=== PATIENT | female | born 1985 | race Caucasian/White ===

== ENCOUNTER 2020-07-09 20:13 | Emergency (ER) | payer OTHER, SELFPAY ==
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
[2020-07-09 20:12] VITALS: BP 123/74; PULSE 91; O2SAT 98
[2020-07-09 20:16] VITALS: BP 135/96; PULSE 81; RESP 16; O2SAT 97; BMI 45.4
[2020-07-09] MEDS: Acetaminophen 325 MG TABLET 650 MG PO (20:30)
--- NOTE | 2020-07-09 20:30 | PC.NURSE ---
Pt medicated with Tylenol and provided with ice while awaiting primary MD peres.
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
--- NOTE | 2020-07-09 22:18 | PC.NURSE ---
Off to CT on hospital bed.
[2020-07-09] MEDS: diazePAM 2 MG TABLET PO (22:19)
--- NOTE | 2020-07-09 22:20 | PC.NURSE ---
Returns from CT, medicated with Diazepam per MAY. Awaiting CT results.
--- NOTE | 2020-07-09 23:04 | PC.NURSE ---
MD at bedside explaining results and plan to DC home.
[2020-07-09 23:11] VITALS: BP 152/74; PULSE 80; RESP 16; O2SAT 98
== END 2020-07-09 23:12 | disposition home or self-care (01) ==
PROVIDERS: Emergency Provider Emergency Medicine
DX: S19.9XXA Unspecified injury of neck, initial encounter (principal); M54.2 Cervicalgia; V89.2XXA Person injured in unspecified motor-vehicle accident, traffic, initial encounter; Y93.9 Activity, unspecified; Y92.410 Unspecified street and highway as the place of occurrence of the external cause; Y99.9 Unspecified external cause status; Z79.899 Other long term (current) drug therapy; F17.200 Nicotine dependence, unspecified, uncomplicated; Z71.6 Tobacco abuse counseling
CPT/HCPCS: 70450; 72125; 99284

== ENCOUNTER 2022-08-10 15:39 | Emergency (ER) | payer OTHER, SELFPAY ==
--- NOTE | ~2022-08-10 | US_ITS ---
EXAMINATION: US PELVIS CLINICAL INFORMATION: Left lower quadrant abdominal pain and vaginal bleeding COMPARISON: None available. TECHNIQUE: Ultrasound of the pelvis is performed using both transabdominal and transvaginal transducers along with Doppler. Transvaginal imaging is performed due to inadequate visualization transabdominally. FINDINGS: Uterus: The uterus is retroverted and measures 7.8 x 4.4 x 5.0 cm. Parenchymal echotexture is homogeneous. No mass lesions The double wall endometrial thickness is 0.4 mm. The uterus is smooth in contour and has normal myometrial echogenicity. No visible fibroid. Adnexa: Both ovaries are visualized. There is no pelvic ascites or fluid collection. Duplex Doppler evaluation is normal to the right ovary however limited in the left ovary. Cannot exclude a left ovarian torsion Right ovary measures 3.2 x 1.7 x 2.2 cm. Sonographically normal Left ovary measures 1.7 x 3.2 x 1.5 cm. Sonographically normal US/US pelvic and transvaginal IMPRESSION: Uterus and bilateral ovaries appear sonographically normal however the duplex Doppler evaluation of the left ovary is severely limited. Cannot exclude ovarian torsion
--- NOTE | ~2022-08-10 | US_ITS ---
EXAMINATION: US PELVIS CLINICAL INFORMATION: Left lower quadrant abdominal pain and vaginal bleeding COMPARISON: None available. TECHNIQUE: Ultrasound of the pelvis is performed using both transabdominal and transvaginal transducers along with Doppler. Transvaginal imaging is performed due to inadequate visualization transabdominally. FINDINGS: Uterus: The uterus is retroverted and measures 7.8 x 4.4 x 5.0 cm. Parenchymal echotexture is homogeneous. No mass lesions The double wall endometrial thickness is 0.4 mm. The uterus is smooth in contour and has normal myometrial echogenicity. No visible fibroid. Adnexa: Both ovaries are visualized. There is no pelvic ascites or fluid collection. Duplex Doppler evaluation is normal to the right ovary however limited in the left ovary. Cannot exclude a left ovarian torsion Right ovary measures 3.2 x 1.7 x 2.2 cm. Sonographically normal Left ovary measures 1.7 x 3.2 x 1.5 cm. Sonographically normal US/US pelvic ovarian doppler IMPRESSION: Uterus and bilateral ovaries appear sonographically normal however the duplex Doppler evaluation of the left ovary is severely limited. Cannot exclude ovarian torsion
--- NOTE | ~2022-08-10 | CT_ITS ---
EXAMINATION: CT ABDOMEN AND PELVIS WITHOUT CONTRAST CLINICAL INFORMATION: Lower abdominal pain COMPARISON: None available. TECHNIQUE: Multidetector volumetric imaging was performed from the superior aspect of the liver through the pubic symphysis. Sagittal and coronal reformatted images were obtained on the technologist's workstation. This CT examination was performed using dose optimization techniques as appropriate, variously including the following: *Automated exposure control *Adjustment of mA and/or kV according to patient size (this includes techniques or standardized protocols for targeted exams where dose is matched to indication/reason for exam; i.e. extremities or head) *Use of iterative reconstruction technique DLP: 1081 mGy-cm FINDINGS: LUNG BASES: Unremarkable. ABDOMINAL AND PELVIC WALL: Small fat-containing umbilical hernia. LIVER AND BILIARY TREE: Hypoattenuating hepatic parenchyma compatible with hepatic steatosis. Liver is enlarged measuring 20.8 cm in span. GALLBLADDER: Unremarkable. PANCREAS: Unremarkable. SPLEEN: Unremarkable. ADRENAL GLANDS: Unremarkable. KIDNEYS AND URETERS: Punctate nonobstructing left midpole renal stone. No hydronephrosis. GASTROINTESTINAL TRACT: Colonic diverticulosis without evidence of diverticulitis. Normal appendix. VASCULAR: Unremarkable. LYMPH NODES/PERITONEUM: No lymphadenopathy. FREE FLUID: None. BLADDER: Unremarkable. PELVIC VISCERA: Uterus is retroverted in position. OSSEOUS STRUCTURES: Unremarkable. CT/CT abdomen pelvis wo IV con IMPRESSION: 1. No acute findings to explain symptoms of lower abdominal pain. 2. Punctate nonobstructing left midpole renal stone. No hydronephrosis. 3. Hepatomegaly and hepatic steatosis.
[2022-08-10 15:54] VITALS: BP 154/93; PULSE 77; RESP 16; TEMP 36.3; O2SAT 98; BMI 46.2
--- NOTE | 2022-08-10 15:54 | ED.GENADULT ---
HPI - General Adult General Chief complaint: Abdominal Pain Stated complaint: abd pain sent from urgent care Time Seen by Provider: 08/10/22 19:42 Source: patient, RN notes reviewed and old records reviewed Mode of arrival: ambulatory Limitations: no limitations History of Present Illness HPI narrative: 36-year-old female presents for evaluation of left lower abdominal pain. The pain started 4 days ago Patient reports that her menstrual cycle started last week and is now light and ?finishing up. ? Her pain is intermittent, 09/15 The patient went to urgent care prior to coming here and was referred here for a pelvic ultrasound Patient denies any fevers, chills Denies any history abdominal surgeries Related Data Previous Rx's Medication Instructions Recorded baclofen 10 mg tablet 10 mg PO BID #10 tabs 07/09/20 ibuprofen 600 mg tablet 600 mg PO TID PRN pain #14 tabs 07/09/20 ibuprofen 600 mg tablet 600 mg PO Q6H PRN pain #20 tabs 08/10/22 Allergies Allergy/AdvReac Type Severity Reaction Status Date / Time shellfish derived Allergy Hives Verified 08/10/22 21:06 Review of Systems Constitutional: Constitutional: Reports as per HPI, Denies chills, Denies fatigue, Denies fever(s) and Denies headache(s) ENT: Denies headache(s) Cardiovascular: Cardiovascular: Denies chest pain and Denies dyspnea Respiratory: Respiratory: Denies cough and Denies dyspnea Gastrointestinal: Gastrointestinal: Reports abdominal pain, Denies constipation and Denies vomiting Genitourinary: Genitourinary: Denies dysuria Neurologic: Denies headache(s) and Denies focal weakness Endocrine: Endocrine: Denies fatigue [facility] Past Medical History Medical History No known health problems Social History Social History Alcohol intake: never Smoked in Last 30 Days: Yes Use of substances other than those prescribed or required for medical reasons: No Advance Directives: No Advance Directives Information Provided: No Patient : No Physical Exam ED Vital Signs: Vital Signs - 24 hr 08/10/22 18:00 08/10/22 18:31 08/10/22 19:33 Temperature 98.1 F 98.5 F Pulse Rate 67 62 Respiratory Rate 18 16 Blood Pressure 135/69 154/73 H Pulse Oximetry 96 98 Oxygen Delivery Method Room Air Room Air 08/10/22 21:04 08/10/22 21:58 Temperature 98.0 F 98.1 F Pulse Rate 71 70 Respiratory Rate 16 16 Blood Pressure 140/63 H 121/47 L Pulse Oximetry 95 98 Oxygen Delivery Method Room Air Room Air BMI result Body Mass Index 46.2 Const General: healthy appearing, comfortable, no acute distress, alert and awake Nutritional Appearance: well nourished Orientation/consciousness: patient oriented x3 HENMT Head: Yes normocephalic and Yes atraumatic Eyes Eyelids: Yes eyelids normal Conjunctivae: conjunctivae normal Sclerae: sclerae normal Corneas: corneas normal Pupils: Equal, round and reactive pupils present EOM: EOMs intact bilaterally Neck Neck: Yes full ROM Resp Effort & Inspection: normal respiratory effort, no audible wheezes and not labored Cardio Rate: regular rate Rhythm: regular rhythm GI Inspection: No distended Palpation (GI): Soft to palpation, not firm, Tenderness to palpation present (GI) in the LLQ; not suprapubicly, no guarding and not rigid Auscultation: normoactive bowel sounds Skin General skin exam: no rashes or lesions noted and elasticity normal Neuro General: patient oriented x3 Cranial nerves: Yes Equal, round and reactive pupils present and Yes Bilaterally intact EOM present Extrem Other: Moving all extremities well without any obvious deformities Course Course Course Narrative: RME: lower abdominal pain and on her menstration. presents to the ED for LlQ abdominal pain and bleeding more than usual. Urgent Care test negative for . Sent from URgent care for imaging. Labs, UA, and US ordered. Reevaluation(s) Reevaluation #1: CT scan without acute findings, discussed this with the patient. I discussed the ultrasound report that the patient could not be entirely excluded from ovarian torsion however the left ovary would likely not have normal appearance is it has lacks blood supply for the last 4 days, so I feel that this is less likely. The patient be discharged with ibuprofen Time: 22:12 Medications Administered Discontinued Medications Generic Name Dose Route Start Last Admin Trade Name Freq PRN Reason Stop Dose Admin Ketorolac Tromethamine 30 mg 08/10/22 19:52 08/10/22 20:49 Ketorolac Tromethamine 30 Mg/Ml Vial IM 08/10/22 19:53 30 mg ONCE ONE Administration Medical Decision Making Medical Decision Making MDM Narrative: 36-year-old female presents for evaluation of left lower abdominal pain for the last 4 days. Patient's workup is significant for a slight leukocytosis of 12.7k, urine shows hematuria with 11-20 white cells and 1+ bacteria. Ultrasound shows normal anatomical structure left ovary but reports that I cannot completely exclude ovarian torsion due to exam limitations. The patient appears quite well. I would doubt the patient has had ovarian torsion for the last 4 days with a normal left ovary on ultrasound. However the patient may benefit from repeat ultrasound in the next 1-2 days Differential Diagnosis Ovarian cyst Ovarian torsion UTI Obstructive uropathy Menstrual cramps Lab Data [facility] Lab Attestation statement: I reviewed the patient's lab results. 08/10/22 17:26 08/10/22 17:26 Labs: Lab Results 08/10/22 08/10/22 08/10/22 Range/Units 17:26 17:26 17:26 WBC 12.7 H (4.8-10.8) X10*3/uL RBC 4.70 (4.20-5.50) X10*6/uL Hgb 13.6 (12.0-16.0) g/dl Hct 41.2 (37.0-47.0) % MCV 87.7 (80.0-98.0) fL MCH 28.9 (27.0-33.0) pg MCHC 33.0 (31.0-35.0) g/dl RDW 14.0 (11.0-16.0) % Plt Count 341 (160-400) X10*3/uL MPV 10.4 (9.4-12.3) fL Immature Gran % (Auto) 0.6 H (0.0-0.4) % Neut % (Auto) 68.6 (45-73) % Lymph % (Auto) 20.6 (20-40) % [place] % (Auto) 8.4 (2-11) % Eos % (Auto) 1.4 (0-4) % Baso % (Auto) 0.4 (0-2) % Lymph # (Auto) 2.6 (1.2-4.9) X10*3/uL [place] # (Auto) 1.1 (0.1-1.2) X10*3/uL Eos # (Auto) 0.2 (0.0-0.4) X10*3/uL Baso # (Auto) 0.1 (0.0-0.2) X10*3/uL Abs Immat Gran (auto) 0.08 H (0.00-0.03) X10*3/uL Absolute Neuts (auto) 8.7 H (2.0-8.3) x10*3/uL Absolute Nucleated RBC 0.000 (0.0-0.012) X10*3/uL Nucleated RBC % (auto) 0.0 (0.0-0.2) /100WBC PT 11.3 (10.0-13.1) SEC INR 1.0 (0.9-1.1) APTT 32.6 (26.0-36.4) SEC Sodium 140 (135-145) mmol/L Potassium 4.2 (3.3-5.1) mmol/L Chloride 105 (96-108) mmol/L Carbon Dioxide 23 (22-29) mmol/L Anion Gap 16 (12-20) BUN 11 (9-16) mg/dL Creatinine 0.77 (0.5-1.4) mg/dL Estim Creat Clear Calc 145.6 Estimated GFR > 60 Random Glucose 96 (60-115) mg/dL Calcium 9.2 (8.4-10.2) mg/dL Total Bilirubin 0.5 (0.0-1.0) mg/dL AST 15 (5-31) U/L ALT 19 (0-31) U/L Alkaline Phosphatase 93 (39-117) U/L Total Protein 7.0 (6.5-8.0) g/dL Albumin 3.9 (3.5-5.0) g/dL Beta HCG, Quant < 2 mIU/mL Urine Color Urine Appearance Urine pH (5.0-9.0) Ur Specific [place] (1.005-1.025) Urine Protein (Neg-Trace) mg/dL Urine Glucose (UA) (Negative) mg/dL Urine Ketones (Negative) mg/dL Urine Blood (Negative) Urine Nitrite (Negative) Ur Leukocyte Esterase (Negative) Urine RBC (0-2) /HPF Urine WBC (0-5) /HPF Ur Squamous Epith Cells (0-2) /HPF Urine Bacteria (None Seen) Hyaline Casts (0-2) /LPF 06/04/23 Range/Units 19:30 WBC (4.8-10.8) X10*3/uL RBC (4.20-5.50) X10*6/uL Hgb (12.0-16.0) g/dl Hct (37.0-47.0) % MCV (80.0-98.0) fL MCH (27.0-33.0) pg MCHC (31.0-35.0) g/dl RDW (11.0-16.0) % Plt Count (160-400) X10*3/uL MPV (9.4-12.3) fL Immature Gran % (Auto) (0.0-0.4) % Neut % (Auto) (45-73) % Lymph % (Auto) (20-40) % [place] % (Auto) (2-11) % Eos % (Auto) (0-4) % Baso % (Auto) (0-2) % Lymph # (Auto) (1.2-4.9) X10*3/uL [place] # (Auto) (0.1-1.2) X10*3/uL Eos # (Auto) (0.0-0.4) X10*3/uL Baso # (Auto) (0.0-0.2) X10*3/uL Abs Immat Gran (auto) (0.00-0.03) X10*3/uL Absolute Neuts (auto) (2.0-8.3) x10*3/uL Absolute Nucleated RBC (0.0-0.012) X10*3/uL Nucleated RBC % (auto) (0.0-0.2) /100WBC PT (10.0-13.1) SEC INR (0.9-1.1) APTT (26.0-36.4) SEC Sodium (135-145) mmol/L Potassium (3.3-5.1) mmol/L Chloride (96-108) mmol/L Carbon Dioxide (22-29) mmol/L Anion Gap (12-20) BUN (9-16) mg/dL Creatinine (0.5-1.4) mg/dL Estim Creat Clear Calc Estimated GFR Random Glucose (60-115) mg/dL Calcium (8.4-10.2) mg/dL Total Bilirubin (0.0-1.0) mg/dL AST (5-31) U/L ALT (0-31) U/L Alkaline Phosphatase (39-117) U/L Total Protein (6.5-8.0) g/dL Albumin (3.5-5.0) g/dL Beta HCG, Quant mIU/mL Urine Color Dark Yellow Urine Appearance Clear Urine pH 5.5 (5.0-9.0) Ur Specific [place] >= 1.030 H (1.005-1.025) Urine Protein Trace (Neg-Trace) mg/dL Urine Glucose (UA) Negative (Negative) mg/dL Urine Ketones Negative (Negative) mg/dL Urine Blood Moderate (2+) H (Negative) Urine Nitrite Negative (Negative) Ur Leukocyte Esterase Trace H (Negative) Urine RBC >20 H (0-2) /HPF Urine WBC 11-20 H (0-5) /HPF Ur Squamous Epith Cells 3-5 (0-2) /HPF Urine Bacteria 1+ (None Seen) Hyaline Casts 0-2 (0-2) /LPF Radiology Impression Discussion of test interpretation with radiology: I have reviewed the radiologist's reading. Discharge Plan Discharge Clinical Impression: Abdominal pain Patient Disposition: Home, Self-Care Instructions: Abdominal Pain (ED) Additional Instructions: Your workup did not show any findings to explain your abdominal pain. You should repeat pelvic ultrasound the next 1-2 days if your pain continues to be significant Your left ovary appeared normal on ultrasound, but the radiologist felt it was a limited exam and could not completely rule out torsion. Call your OBGYN tomorrow morning as well Prescriptions: New ibuprofen 600 mg tablet 600 mg PO Q6H PRN (Reason: pain) Qty: 20 0RF No Action baclofen 10 mg tablet 10 mg PO BID Qty: 10 0RF ibuprofen 600 mg tablet 600 mg PO TID PRN (Reason: pain) Qty: 14 0RF Stand Alone Forms: Work/School Release Interventions: ED Discharge Assessment Last Done: 08/10/22 22:45 Discharge Date/Time: 08/10/22 22:50
[2022-08-10 17:30] LABS: MANUAL DIFF FLAG NO
[2022-08-10 17:31] LABS: Basophils Absolute Auto 0.1 X10*3/uL (0.0-0.2); Basophils Percent Auto 0.4 % (0-2); Eosinophils Absolute Auto 0.2 X10*3/uL (0.0-0.4); Eosinophils Percent Auto 1.4 % (0-4); Hematocrit 41.2 % (37.0-47.0); Hemoglobin 13.6 g/dl (12.0-16.0); Imm Gran Abs Auto 0.08 X10*3/uL (0.00-0.03); Imm Gran Pct Auto 0.6 % (0.0-0.4); Lymphocytes Absolute Auto 2.6 X10*3/uL (1.2-4.9); Lymphocytes Percent Auto 20.6 % (20-40); Mean Corpuscular Hemoglobin 28.9 pg (27.0-33.0); Mean Corpuscular Volume 87.7 fL (80.0-98.0); Mean Platelet Volume 10.4 fL (9.4-12.3); Monocytes Absolute Auto 1.1 X10*3/uL (0.1-1.2); Monocytes Percent Auto 8.4 % (2-11); Neutrophils Absolute Auto 8.7 x10*3/uL (2.0-8.3); Neutrophils Percent Auto 68.6 % (45-73); Platelet Count 341 X10*3/uL (160-400); White Blood Count 12.7 X10*3/uL (4.8-10.8)
[2022-08-10 17:46] LABS: Prothrombin Time 11.3 SEC (10.0-13.1)
[2022-08-10 17:49] LABS: Partial Thromboplastin Time 32.6 SEC (26.0-36.4)
[2022-08-10 17:55] LABS: Alanine Aminotransferase 19 U/L (0-31); Albumin Level 3.9 g/dL (3.5-5.0); Alkaline Phosphatase 93 U/L (39-117); Anion Gap 16 (12-20); Aspartate Amino Transferase 15 U/L (5-31); Bilirubin Total 0.5 mg/dL (0.0-1.0); Blood Urea Nitrogen 11 mg/dL (9-16); Calcium 9.2 mg/dL (8.4-10.2); Carbon Dioxide 23 mmol/L (22-29); Chloride 105 mmol/L (96-108); Creatinine Clr Calc Pharmacy 145.6; Estimated Glomerular Filt Rate > 60; Glucose Random 96 mg/dL (60-115); HCG Quantitative < 2 mIU/mL; Potassium 4.2 mmol/L (3.3-5.1); Sodium 140 mmol/L (135-145)
[2022-08-10 18:00] VITALS: BP 135/69; PULSE 67; RESP 18; O2SAT 96
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
[2022-08-10 18:31] VITALS: TEMP 36.7
[2022-08-10 19:33] VITALS: BP 154/73; PULSE 62; RESP 16; TEMP 36.9; O2SAT 98
--- NOTE | 2022-08-10 19:33 | MHC.EDTECH ---
PT VITALS SIGN TAKEN AND URINE SAMPLE COLLECTED AND SENT TO LAB .
[2022-08-10 19:36] LABS: Appearance Urine Clear; Color Urine Dark Yellow; Glucose Urine UA Negative (Negative); Leukocyte Esterase Urine Trace (Negative); Nitrite Urine Negative (Negative); PH 5.5 (5.0-9.0); Specific Gravity - Urine >= 1.030 (1.005-1.025); UMIC TRIGGER UACC YES; Urine Blood Moderate (2+) (Negative); Urine Ketones Negative (Negative); Urine Protein Trace mg/dL (Neg-Trace)
[2022-08-10 20:18] LABS: Bacteria Urine 1+ (None Seen); Hyaline Casts Urine 0-2 /LPF (0-2); RBC Urine >20 /HPF (0-2); UACC Culture Trigger YES
[2022-08-10] MEDS: Ketorolac Tromethamine 30 MG/ML VIAL IM (20:49)
[2022-08-10 21:04] VITALS: BP 140/63; PULSE 71; RESP 16; TEMP 36.7; O2SAT 95
[2022-08-10 21:58] VITALS: BP 121/47; PULSE 70; RESP 16; TEMP 36.7; O2SAT 98
== END 2022-08-10 22:50 | disposition home or self-care (01) ==
PROVIDERS: Physician Assistant; Emergency Provider Emergency Medicine
DX: R10.32 Left lower quadrant pain (principal); R10.2 Pelvic and perineal pain; Z79.899 Other long term (current) drug therapy
CPT/HCPCS: 36415; 74176; 76830; 76856; 80053; 81001; 84702; 85025; 85610; 85730; 87086; 93975; 96372; 99284; 99285; J1885